=== PATIENT | female | born 1965 | race Caucasian/White ===

== ENCOUNTER 2019-02-20 08:15 | Emergency (ER) | payer OTHER ==
[~2019-02-20] VITALS: Ht 157.5 cm; Wt 123.4 kg
[2019-02-20] MEDS ORDERED: CLARITIN-D 241 EACH PO (12:12)
[2019-02-20] MEDS ORDERED: AMOX-CLAV 875-1 EACH PO (12:12)
[2019-02-20] MEDS ORDERED: MECLIZINE HCL25 MG PO (12:16)
[2019-02-20] MEDS ORDERED: FLONASE SENSIM5.9 ML IH (12:16)
== END 2019-02-20 13:50 | disposition home or self-care (01) ==
LOC: ER 08:15
DX: R42 Dizziness and giddiness (principal); J32.8 Other chronic sinusitis

== ENCOUNTER 2024-04-14 08:12 | Emergency (ER) | payer OTHER ==
[~2024-04-14] VITALS: Ht 154.9 cm; Wt 108.9 kg
[~2024-04-14 08:12] MED LIST: AMOX-CLAV 875-1 EACH PO; CLARITIN-D 241 EACH PO; DICLOFENAC SODI75 MG PO; FLONASE SENSIM5.9 ML IH; MECLIZINE HCL25 MG PO; PERMETHRIN60 GM TOP
[2024-04-14] MEDS ORDERED: VASOTEC2.5 MG PO (08:36)
[2024-04-14] MEDS ORDERED: TETANUS & DIPHTHERIA TOX,ADULT 0.5 ML VIAL IM ONE (10:45)
[2024-04-14] MEDS ORDERED: LIDOCAINE HCL 1% 10ML VIAL PERCUT ONE (10:45)
== END 2024-04-14 13:36 | disposition home or self-care (01) ==
LOC: ER 08:15
DX: S91.012A Laceration without foreign body, left ankle, initial encounter (principal); W45.8XXA Other foreign body or object entering through skin, initial encounter; Y93.89 Activity, other specified; Y92.89 Other specified places as the place of occurrence of the external cause; Y99.8 Other external cause status
CPT/HCPCS: 12001; 90471; 90714; 96372; J1670